=== PATIENT | female | born 1970 | race Hispanic/Latino ===

== ENCOUNTER 2017-11-18 11:54 | Emergency (ER) | payer BC ==
[2017-11-18 12:22] VITALS: BMI 25.2
[2017-11-18] MEDS ORDERED: Sodium Chloride 0.9% 1,000 ML IV STA (12:23)
--- NOTE | 2017-11-18 12:23 | ED PDOC ---
Arrival/HPI - General Time Seen by Provider: 11/18/17 12:13 Historian: Patient - History of Present Illness Narrative History of Present Illness (Text): 11/18/17 12:20 47 year old female, pmh including gastritis, nkda, complaining of on and off dizziness with room spinning sensation x 2 weeks with no fall or trauma. Dizziness with room spinning sensation, feels nauseous with dizziness occasionally, no chest pain or palpitation, no night sweat, no rash, no numbness or tingling, no palpitation, no flank pain or shoulder pain, no other medical or psychological complaints. Past Medical History - Provider Review Nursing Documentation Reviewed: Yes - Infectious Disease Hx of Infectious Diseases: None - Tetanus Immunization Tetanus Immunization: Unknown - Cardiac Hx Cardiac Disorders: No - Pulmonary Hx Respiratory Disorders: No - Neurological Hx Neurological Disorder: Yes Hx Migraine: Yes - HEENT Hx HEENT Disorder: No - Renal Hx Renal Disorder: No - Endocrine/Metabolic Hx Endocrine Disorders: No - Hematological/Oncological Hx Blood Disorders: No - Integumentary Hx Dermatological Disorder: No - Musculoskeletal/Rheumatological Hx Musculoskeletal Disorders: No - Gastrointestinal Hx Gastrointestinal Disorders: No - Genitourinary/Gynecological Hx Genitourinary Disorders: No - Psychiatric Hx Psychophysiologic Disorder: No Hx Substance Use: No - Surgical History Hx Section: Yes (x2) Hx Cholecystectomy: Yes Other/Comment: migraine headache - Anesthesia Hx Anesthesia: Yes Hx Anesthesia Reactions: No Hx Malignant Hyperthermia: No - Suicidal Assessment Feels Threatened In Home Enviroment: No Family/Social History - Physician Review Nursing Documentation Reviewed: Yes Family/Social History: Unknown Family HX Smoking Status: Never Smoked Hx Alcohol Use: No Hx Substance Use: No Hx Substance Use Treatment: No Allergies/Home Meds Allergies/Adverse Reactions: Allergies No Known Allergies Allergy (Verified 12/31/14 19:21) Review of Systems - Review of Systems Constitutional: absent: Fatigue, Fevers Eyes: absent: Vision Changes ENT: absent: Hearing Changes Respiratory: absent: SOB, Cough Cardiovascular: absent: Chest Pain Gastrointestinal: Nausea. absent: Abdominal Pain, Vomiting Skin: absent: Rash, Pruritis Neurological: Dizziness. absent: Headache, Focal Weakness, Gait Changes, Speech Changes, Facial Droop, Disequilibrium, Seizure Endocrine: absent: Diaphoresis, Polyuria Psychiatric: absent: Anxiety, Depression, Suicidal Ideation Physical Exam Vital Signs Temp Pulse Resp BP Pulse Ox 11/18/17 12:25 98.1 F 110 H 18 143/95 H 100 11/18/17 12:22 98.1 F 110 H 17 143/95 H 100 - Systems Exam Head: Present: Atraumatic, Normocephalic Pupils: Present: PERRL Extroacular Muscles: Present: EOMI Conjunctiva: Present: Normal Ears: Present: Other (Lt. auditory canal is impacted with ceruman) Mouth: Present: Moist Mucous Membranes Neck: Present: Normal Range of Motion Respiratory/Chest: Present: Clear to Auscultation, Good Air Exchange. No: Respiratory Distress, Accessory Muscle Use Cardiovascular: Present: Regular Rate and Rhythm, Normal S1, S2. No: Murmurs Abdomen: No: Tenderness, Distention, Peritoneal Signs, Rebound, Guarding Back: Present: Normal Inspection Upper Extremity: Present: Normal Inspection. No: Cyanosis, Edema Lower Extremity: Present: Normal Inspection. No: Edema Neurological: Present: GCS=15, CN II-XII Intact, Speech Normal, Motor Func Grossly Intact, Gait Normal, Memory Normal, Other (no drift, NIHSS is zero, no focal neurological deficits, +annelise garcía pike test) Skin: Present: Warm, Dry, Normal Color. No: Rashes Psychiatric: Present: Alert, Oriented x 3, Normal Insight, Normal Concentration Medical Decision Making ED Course and Treatment: 11/18/17 12:22 -Labs/ua -CT head -EKG -IVF/meclizine/zofran/pepcid -Orthostatic BP -Observe and reassess 11/18/17 14:17 -Lt. ear clean with normal saline, 100cc, all wax removed and the ear re- examined show the following: Ears: bilateral TMs viet color and intact, bilateral auditory canals non-erythematous, no mastoid tenderness 11/18/17 15:11 -Urine hcg is negative -CT head Mild chronic microvascular white matter ischemic change. No intracranial mass, hemorrhage or evidence of acute infarct. Probable cerumen in left external auditory canal. Correlate with direct visual inspection. -EKG NSR @ 80 BPM, no ST elevation or depression, no T wave inversion. -Labs show show no acute findings -trop is negative within normal limit -Lipase is negative -Urinalysis show +UTI, IV rocephine 1gm ordered. -Pt. feels much better, walking with normal gait and posture, dizziness with room spinning sensation resolved. -Discharge home with macrobid, meclizine, zofran, bed rest, follow up with your own pmd and neurologist within 2 days, return to the Emergency room for any new or worsening signs or symptoms. - Lab Interpretations Lab Results: 11/18/17 13:12 11/18/17 13:12 Lab Results 11/18/17 13:12: Urine Color Yellow, Urine Appearance Cloudy, Urine pH 6.0, Ur Specific [place] <= 1.005, Urine Protein Negative, Urine Glucose (UA) Negative, Urine Ketones Negative, Urine Blood Negative, Urine Nitrate Negative, Urine Bilirubin Negative, Urine Urobilinogen 0.2, Ur Leukocyte Esterase Moderate H, Urine RBC 0 - 2, Urine WBC 10 - 15, Ur Epithelial Cells 6 - 8, Urine Bacteria Occ, Urine HCG, Qual Negative 11/18/17 13:12: WBC 5.9, RBC 3.96, Hgb 11.9 L, Hct 35.7 L, MCV 90.2, MCH 30.1, MCHC 33.3, RDW 12.8, Plt Count 277, MPV 10.0, Gran % 68.8 H, Lymph % (Auto) 20.8 L, [place] % (Auto) 7.3 H, Eos % (Auto) 2.9, Baso % (Auto) 0.2, Gran # 4.03, Lymph # (Auto) 1.2, [place] # (Auto) 0.4, Eos # (Auto) 0.2, Baso # (Auto) 0.01 11/18/17 13:12: Sodium 141, Potassium 4.0, Chloride 107, Carbon Dioxide 23, Anion Gap 15, BUN 17, Creatinine 1.1, Est GFR ( Amer) > 60, Est GFR (Non- Af Amer) 53, Random Glucose 88, Calcium 9.7, Magnesium 1.9, Total Bilirubin 0.6 , AST 29, ALT 25, Alkaline Phosphatase 56, Lactate Dehydrogenase 393, Total Creatine Kinase 75, Troponin I < 0.01, Total Protein 7.8, Albumin 4.3, Globulin 3.4, Albumin/Globulin Ratio 1.3, Lipase 77 - RAD Interpretation Radiology Orders: 11/18/17 12:23 HEAD W/O CONTRAST [CT] Stat HISTORY: dizziness, room spinning x 2 weeks COMPARISON: None available. TECHNIQUE: Axial computed tomography images were obtained through the head/brain without intravenous contrast. Radiation dose: Total exam DLP = 732.44 mGy-cm. This CT exam was performed using one or more of the following dose reduction techniques: Automated exposure control, adjustment of the mA and/or kV according to patient size, and/or use of iterative reconstruction technique. FINDINGS: HEMORRHAGE: No intracranial hemorrhage. BRAIN: No mass effect or edema. Mild patchy periventricular and deep/subcortical white matter lucency consistent with chronic microvascular ischemic change. No evidence of acute infarct. VENTRICLES: Unremarkable. No hydrocephalus. CALVARIUM: Unremarkable. PARANASAL SINUSES: Unremarkable as visualized. No significant inflammatory changes. MASTOID AIR CELLS: Unremarkable as visualized. No inflammatory changes. OTHER FINDINGS: Soft tissue density in left external auditory canal adjacent to the tympanic membrane, most likely seroma min. Correlate with visual inspection. IMPRESSION: Mild chronic microvascular white matter ischemic change. No intracranial mass, hemorrhage or evidence of acute infarct. Probable cerumen in left external auditory canal. Correlate with direct visual inspection. Logistics Engineer: Radiologist - EKG Interpretation EKG Interpretation (Text): 11/18/17 15:11 NSR @ 80 BPM, no ST elevation or depression, no T wave inversion. Interpreted by ED Physician: Yes Type: 12 lead EKG - Medication Orders Current Medication Orders: Discontinued Medications Famotidine (Pepcid) 20 mg IVP STAT STA Stop: 11/18/17 12:24 Last Admin: 11/18/17 13:15 Dose: 20 mg IVP Administration Document 11/18/17 13:15 PHYSICIAN INTENSIVIST (Rec: 11/18/17 13:15 PHYSICIAN INTENSIVIST [facility] [id number] Charges for Administration # of IVP Administrations 1 Sodium Chloride (Sodium Chloride 0.9%) 1,000 mls @ 999 mls/hr IV .Q1H1M STA Stop: 11/18/17 13:23 Last Admin: 11/18/17 13:17 Dose: 999 mls/hr eMAR Start Stop Document 11/18/17 13:17 PHYSICIAN INTENSIVIST (Rec: 11/18/17 13:17 PHYSICIAN INTENSIVIST [facility] [id number]) Intravenous Solution Start Date 11/18/17 Start Time 13:17 Ceftriaxone Sodium (Rocephin 1 Gram Ivpb) 1 gm in 100 mls @ 200 mls/hr IVPB STAT STA PRN Reason: Protocol Stop: 11/18/17 13:56 Last Admin: 11/18/17 13:38 Dose: 200 mls/hr eMAR Start Stop Document 11/18/17 13:38 SRE (Rec: 11/18/17 13:39 SRE [id number]) Intravenous Solution Start Date 11/18/17 Start Time 13:39 End Date 11/18/17 End time 14:40 Total Infusion Time 61 Meclizine HCl (Antivert) 50 mg PO STAT STA Stop: 11/18/17 13:54 Last Admin: 11/18/17 14:07 Dose: 50 mg Ondansetron HCl (Zofran Inj) 4 mg IVP STAT STA Stop: 11/18/17 12:24 Last Admin: 11/18/17 13:15 Dose: 4 mg IVP Administration Document 11/18/17 13:15 PHYSICIAN INTENSIVIST (Rec: 11/18/17 13:16 PHYSICIAN INTENSIVIST [facility] [id number]) Charges for Administration # of IVP Administrations 1 - PA / ANIMAL CRUELTY INVESTIGATOR / Resident Statement MD/DO has reviewed & agrees with the documentation as recorded. Disposition/Present on Arrival - Present on Arrival Any Indicators Present on Arrival: No History of DVT/PE: No History of Uncontrolled Diabetes: No Urinary Catheter: No History of Decub. Ulcer: No History Surgical Site Infection Following: None - Disposition Have Diagnosis and Disposition been Completed?: Yes Diagnosis: Vertigo, Cerumen impaction, UTI (urinary tract infection) Disposition: HOME/ ROUTINE Disposition Time: 14:19 Patient Plan: Discharge Patient Problems: Current Active Problems Problem Status Onset Vertigo Acute Cerumen impaction Acute UTI (urinary tract infection) Acute Condition: IMPROVED Additional Instructions: -Discharge home with macrobid, meclizine, zofran, bed rest, follow up with your own pmd and neurologist within 2 days, return to the Emergency room for any new or worsening signs or symptoms. Prescriptions: Meclizine [Meclizine*] 25 mg PO Q6 PRN #25 tab PRN Reason: Other Nitrofurantoin Macrocrystals [Macrobid] 100 mg PO BID #14 cap Ondansetron [Zofran] 4 mg PO Q8H PRN #10 tab PRN Reason: Nausea/Vomiting Referrals: Bassam Paez MD [Primary Care Provider] - Follow up with primary Osorio Copeland MD [Staff Provider] - Follow up with primary Forms: WORK NOTE
[2017-11-18 12:36] VITALS: TEMP 98.1; O2SAT 100
[2017-11-18 13:16] LABS: BASO # 0.01 K/mm3 (0.0-2.0); BASO % 0.2 % (0.0-3.0); EOS # 0.2 (0.0-0.7); EOS % 2.9 % (1.5-5.0); GRAN # 4.03 (1.4-6.5); GRAN % 68.8 % (50.0-68.0); HEMOGLOBIN 11.9 g/dL (12.0-16.0); LYMPH # 1.2 (1.2-3.4); LYMPH % 20.8 % (22.0-35.0); MEAN CELL VOLUME 90.2 fl (80.0-105.0); MEAN CORPUSCULAR HEMOGLOBIN 30.1 pg (25.0-35.0); MEAN CORPUSCULAR HGB CONC 33.3 g/dl (31.0-37.0); MONO # 0.4 (0.1-0.6); MONO % 7.3 % (1.0-6.0); RBC 3.96 10^6/uL (3.5-6.1); RED CELL DISTRIBUTION WIDTH 12.8 % (11.5-14.5); WHITE BLOOD COUNT 5.9 10^3/ul (4.5-11.0)
[2017-11-18 13:17] LABS: URINE APPEARANCE CLOUDY (CLEAR); URINE BILIRUBIN NEGATIVE (NEGATIVE); URINE BLOOD NEGATIVE (NEGATIVE); URINE COLOR YELLOW (YELLOW); URINE GLUCOSE (UA) NEGATIVE (NEGATIVE); URINE LEUKOCYTE ESTERASE MODERATE Leu/uL (NEGATIVE); URINE PROTEIN NEGATIVE mg/dL (<30 mg/dL); URINE UROBILINOGEN 0.2 E.U./dL (<1 E.U./dL)
[2017-11-18 13:20] LABS: HCG,QUALITATIVE URINE NEGATIVE (NEGATIVE)
[2017-11-18 13:23] LABS: URINE BACTERIA OCC (NEG); URINE RBC 0 - 2 /hpf (0-2)
[2017-11-18] MEDS ORDERED: cefTRIAXone 1 gm 1 GM/100 ML BAG IVPB STA (13:27)
[2017-11-18 13:32] LABS: ALB/GLOB RATIO 1.3 (1.1-1.8); ALBUMIN 4.3 g/dL (3.0-4.8); ALT/SGPT 25 U/L (7-56); AST/SGOT 29 U/L (14-36); BLOOD UREA NITROGEN 17 mg/dL (7-21); CALCIUM 9.7 mg/dL (8.4-10.5); GFR NON-AFRICAN AMERICAN 53; LIPASE 77 U/L (23-300)
[2017-11-18 13:42] LABS: TROPONIN I < 0.01 ng/mL
--- NOTE | 2017-11-18 13:46 | CT ---
Date of service: 11/18/2017 PROCEDURE: CT HEAD WITHOUT CONTRAST. HISTORY: dizziness, room spinning x 2 weeks COMPARISON: None available. TECHNIQUE: Axial computed tomography images were obtained through the head/brain without intravenous contrast. Radiation dose: Total exam DLP = 732.44 mGy-cm. This CT exam was performed using one or more of the following dose reduction techniques: Automated exposure control, adjustment of the mA and/or kV according to patient size, and/or use of iterative reconstruction technique. FINDINGS: HEMORRHAGE: No intracranial hemorrhage. BRAIN: No mass effect or edema. Mild patchy periventricular and deep/subcortical white matter lucency consistent with chronic microvascular ischemic change. No evidence of acute infarct. VENTRICLES: Unremarkable. No hydrocephalus. CALVARIUM: Unremarkable. PARANASAL SINUSES: Unremarkable as visualized. No significant inflammatory changes. MASTOID AIR CELLS: Unremarkable as visualized. No inflammatory changes. OTHER FINDINGS: Soft tissue density in left external auditory canal adjacent to the tympanic membrane, most likely seroma min. Correlate with visual inspection. IMPRESSION: Mild chronic microvascular white matter ischemic change. No intracranial mass, hemorrhage or evidence of acute infarct. Probable cerumen in left external auditory canal. Correlate with direct visual inspection.
[2017-11-18 15:15] VITALS: PULSE 60; RESP 17
[2017-11-18 15:33] VITALS: BP 135/75
--- NOTE | 2017-11-18 15:54 | CARD ---
APPROVED REPORT Date of service: 11/18/2017 EKG Measurement Heart [id number] <Conclusion> Normal sinus rhythm Cannot rule out Anterior infarct, age undetermined Abnormal ECG
== END 2017-11-18 15:29 | disposition home or self-care (01) ==
LOC: ED 11:54
DX: R42 Dizziness and giddiness (principal); N39.0 Urinary tract infection, site not specified; H61.22 Impacted cerumen, left ear
CPT/HCPCS: 69209; 70450; 80053; 81001; 82550; 83615; 83690; 83735; 84484; 84703; 85025; 87086; 87181; 93005; 96365; 96375; 99285; J0696; J2405; J7030

== ENCOUNTER 2018-07-14 15:28 | Emergency (ER) | payer BC ==
[2018-07-14 15:28] VITALS: BMI 25.2
[2018-07-14] MEDS ORDERED: Sodium Chloride 0.9% 1,000 ML IV STA (15:54)
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
[2018-07-14 16:11] LABS: URINE APPEARANCE CLEAR (CLEAR); URINE BILIRUBIN NEGATIVE (NEGATIVE); URINE BLOOD NEGATIVE (NEGATIVE); URINE COLOR LIGHT YELLOW (YELLOW); URINE GLUCOSE (UA) NEGATIVE (NEGATIVE); URINE LEUKOCYTE ESTERASE SMALL Leu/uL (NEGATIVE); URINE PROTEIN 30 mg/dL (<30 mg/dL); URINE UROBILINOGEN 0.2 E.U./dL (<1 E.U./dL)
[2018-07-14 16:31] LABS: EOS # 0.1 (0.0-0.7); EOS % 2.4 % (1.5-5.0); HEMOGLOBIN 12.2 g/dL (12.0-16.0); LYMPH # 1.5 (1.2-3.4); LYMPH % 26.9 % (22.0-35.0); MEAN CELL VOLUME 94.4 fl (80.0-105.0); MEAN CORPUSCULAR HGB CONC 32.9 g/dl (31.0-37.0); MONO # 0.3 (0.1-0.6); MONO % 6.2 % (1.0-6.0); RBC 3.93 10^6/uL (3.5-6.1); RED CELL DISTRIBUTION WIDTH 13.2 % (11.5-14.5); WHITE BLOOD COUNT 5.5 10^3/uL (4.5-11.0)
--- NOTE | 2018-07-14 16:43 | RAD ---
Date of service: 07/14/2018 HISTORY: Upper abdominal pain. COMPARISON: 03/10/2013. FINDINGS: LUNGS: No active pulmonary disease. PLEURA: No significant pleural effusion identified, no pneumothorax apparent. CARDIOVASCULAR: No atherosclerotic calcification present No radiographic findings to suggest acute or significant cardiovascular disease. OSSEOUS STRUCTURES: No significant abnormalities. VISUALIZED UPPER ABDOMEN: Normal. OTHER FINDINGS: None. IMPRESSION: No active disease. No significant interval change compared to the prior examination(s).
[2018-07-14 16:44] LABS: ALB/GLOB RATIO 1.3 (1.1-1.8); ALBUMIN 4.2 g/dL (3.0-4.8); BLOOD UREA NITROGEN 14 mg/dL (7-21); CALCIUM 9.3 mg/dL (8.4-10.5); GFR NON-AFRICAN AMERICAN > 60; LIPASE 94 U/L (23-300)
[2018-07-14 17:01] LABS: ALT/SGPT 40 U/L (7-56); AST/SGOT 48 U/L (14-36)
[2018-07-14 18:58] VITALS: BP 121/59; PULSE 85; RESP 18; TEMP 98; O2SAT 99
--- NOTE | 2018-07-15 09:37 | US ---
Date of service: 07/14/2018 HISTORY: epigastric abd pain/ruq; hx of cholecystectomy COMPARISON: None. TECHNIQUE: Sonographic evaluation of the abdomen. FINDINGS: LIVER: Measures 18.1 cm. Normal echogenicity of the liver parenchyma. No mass. No intrahepatic bile duct dilatation. GALLBLADDER: Removed COMMON BILE DUCT: Measures 4.1 mm. No stones. No dilatation. PANCREAS: Unremarkable as visualized. No mass. No ductal dilatation. RIGHT KIDNEY: Measures 9.8 x 4.9 x 5.2.cm. Normal echogenicity. No calculus, mass, or hydronephrosis. Large upper lobe pole renal cyst measuring 11.0 x 7.7 x 7.2 cm LEFT KIDNEY: Measures 11.0 x 4.7 x 6.5cm. Normal echogenicity. No calculus, mass, or hydronephrosis. SPLEEN: Normal in size and contour. No mass. 11.8 x 4.4 x 3.9 cm AORTA: No aneurysmal dilatation. IVC: Unremarkable. OTHER FINDINGS: None. IMPRESSION: No acute intra-abdominal findings
--- NOTE | 2018-07-15 13:28 | CARD ---
APPROVED REPORT Date of service: 07/14/2018 EKG Measurement Heart [id number] <Conclusion> Normal sinus rhythm Normal ECG
== END 2018-07-14 18:55 | disposition home or self-care (01) ==
LOC: ED 15:28
DX: R10.13 Epigastric pain (principal)
CPT/HCPCS: 71045; 76700; 80053; 81001; 81025; 83690; 85025; 87086; 93005; 96361; 96374; 96375; 99283; C9113; J2405; J7030